=== PATIENT | female | born 1990 | race Caucasian/White ===

== ENCOUNTER 2019-04-27 17:45 | Emergency (ER) | payer OTHER ==
[2019-04-27 17:51] VITALS: BMI 36.6
--- NOTE | 2019-04-27 19:01 | PDOC ---
History of Present Illness - General Chief Complaint: Cold Symptoms Stated Complaint: FEVER/VOMITING History Source: Patient Exam Limitations: No Limitations - History of Present Illness Initial Comments: 04/27/19 18:55 Patient is a 29 year old female with h/o reflux bladder with repair c/o "I think I have the flu". States she has been having symptoms of bodyache, fever, coughing nonproductive, runnynose, sorethorat, decreased appetite, fatigue, nausea, vomiting. Took cold and flu meds, Aleve for body pain with mild relief. Last dose of Aleve midday. No exposure to persons with Flu. No flu shot this year. LMP 04/14/19 PMD: DR. Hinton PMHX: as above PSOCHX: (-) cig, etoh, durg ALL: NKDA GENERAL/CONSTITUTIONAL: [(+) fever or chills. (+) weakness. No weight change.] HEAD, EYES, EARS, NOSE AND THROAT: [No change in vision. No ear pain or discharge. No sore throat.] CARDIOVASCULAR: [No chest pain or shortness of breath.] RESPIRATORY: [(+) cough, wheezing, or hemoptysis.] GASTROINTESTINAL: (+) nausea, vomiting, diarrhea or constipation. No rectal bleeding.] GENITOURINARY: [No dysuria, frequency, or change in urination.] MUSCULOSKELETAL: [No joint or muscle swelling or pain. No neck or back pain.] SKIN AND BREASTS: [No rash or easy bruising.] NEUROLOGIC: [No headache, vertigo, loss of consciousness, or loss of sensation.] PSYCHIATRIC: [No depression or anxiety.] ENDOCRINE: [No increased thirst. No abnormal weight change.] HEMATOLOGIC/LYMPHATIC: [No anemia, easy bleeding, or history of blood clots.] ALLERGIC/IMMUNOLOGIC: [No hives or skin allergy. No latex allergy.] GENERAL: [The patient is awake, alert, and fully oriented, in mild acute distress.] HEAD: [Normal with no signs of trauma.] EYES: [Pupils equal, round and reactive to light, extraocular movements intact, sclera anicteric, conjunctiva clear.] ENT: [Ears normal, nares patent, oropharynx clear without exudates, mild erythema. Moist mucous membranes.] NECK: [Normal range of motion, supple without lymphadenopathy, JVD, or masses.] LUNGS: [Breath sounds equal, clear to auscultation bilaterally. No wheezes, and no crackles.] HEART: [Regular rate and rhythm, normal S1 and S2 without murmur, rub.] ABDOMEN: [Soft, mild epigastric tenderness, normoactive bowel sounds. No guarding, no rebound. No masses.] EXTREMITIES: [Normal range of motion, no edema. No clubbing or cyanosis. No cords, erythema, or tenderness.] NEUROLOGICAL: [Cranial nerves II through XII grossly intact. Normal speech, normal gait.] PSYCH: [Normal mood, normal affect.] SKIN: [Warm, Dry, normal turgor, no rashes or lesions noted.] Past History - Past Medical History Allergies/Adverse Reactions: Allergies Allergy/AdvReac Type Severity Reaction Status Date / Time No Known Allergies Allergy Verified 04/27/19 17:52 Home Medications: Ambulatory Orders Nitrofurantoin Monohyd/M-Cryst [Macrobid -] 100 mg PO BID #14 capsule 04/27/19 COPD: No Other medical history: DENIES - Immunization History Immunization Up to Date: Yes - Psycho Social/Smoking Cessation Hx Smoking History: Never smoked Have you smoked in the past 12 months: No Information on smoking cessation initiated: No Hx Alcohol Use: No Drug/Substance Use Hx: No *Physical Exam - Vital Signs Last Vital Signs Temp Pulse Resp BP Pulse Ox 99.0 F 139 H 18 117/81 99 04/27/19 17:47 04/27/19 17:47 04/27/19 17:47 04/27/19 17:47 04/27/19 17:47 ED Treatment Course - LABORATORY CBC & Chemistry Diagram: 04/27/19 19:31 04/27/19 19:31 Medical Decision Making - Medical Decision Making 04/27/19 18:55 Patient is a 29 year old female with h/o reflux bladder with repair c/o "I think I have the flu". States she has been having symptoms of bodyache, fever, coughing nonproductive, runnynose, sorethorat, decreased appetite, fatigue. Took cold and flu meds, Aleve for body pain with mild relief. No exposure to persons with Flu. No flu shot this year. LMP 04/14/19 Symptoms consistent with flu like illness Will get labs IV hydration, 04/27/19 21:51 Patient feels improved but is complaining of a headache will give Toradol 30 mg IV. Labs reviewed noted to have influenza A. And also a UTI. Given Macrobid 100 mg p.o. She declines a Tamiflu Patient remains tachycardic we will give more fluids Selected Entries 04/27/19 04/27/19 22:13 23:04 Pulse Rate [ 107 H Right Radial] Respiratory 18 Rate Blood Pressure 118/81 [Right Arm] O2 Sat by Pulse 99 Oximetry (%) . At discharge Pulse 98 I discussed the physical exam findings, ancillary test results and final diagnoses with the patient. I answered all of the patient's questions. The patient was satisfied with the care received and felt comfortable with the discharge plan and treatment plan. The Patient agrees to follow up with the primary care physician within 24-72 hours. Discharge - Discharge Information Problems reviewed: Yes Clinical Impression/Diagnosis: Influenza A UTI (urinary tract infection) Qualifiers: Urinary tract infection type: site unspecified Hematuria presence: without hematuria Qualified Code(s): N39.0 - Urinary tract infection, site not specified Condition: Stable Disposition: HOME - Additional Discharge Information Prescriptions: Nitrofurantoin Monohyd/M-Cryst [Macrobid -] 100 mg PO BID #14 capsule - Follow up/Referral Referrals: Tisha Hinton [Primary Care Provider] - - Patient Discharge Instructions Patient Printed Discharge Instructions: DI for Urinary Tract Infection (UTI), DI for Influenza -- Adult Additional Instructions: Your Discharge Instructions: You must call primary care physician within 24 hours to arrange follow-up. Return to the Emergency Department with any new, persistent or worsening symptoms, for fever, chills, SOB, dizziness or any other concerning changes that may occur. - Post Discharge Activity Work/Back to School Note: Back to Work
[2019-04-27] MEDS ORDERED: SODIUM CHLORIDE 0.9% 500 ML INFUS.BAG IV ONE ×2 (19:06→22:23)
[2019-04-27] MEDS ORDERED: ONDANSETRON 4 MG/2 ML VIAL IVPUSH ONE (19:06)
[2019-04-27] MEDS ORDERED: FAMOTIDINE 20 MG/50 ML IVPB 20 MG/50 ML MG IVPB ONE ×2 (19:06→20:20)
[2019-04-27 19:56] LABS: BASO % 0.6 % (0-2.0); EPI CELLS 5.8 /HPF (0-5/HPF); HEMATOCRIT 40.2 % (32.4-45.2); HEMOGLOBIN 13.3 GM/dL (10.7-15.3); HYALINE CASTS 3 /lpf (0-8); LYMPH % 8.9 % (8-40); MCH 28.6 pg (25.7-33.7); MEAN CELL VOLUME 86.6 fl (80-96); MONO % 11.2 % (3.8-10.2); NEUT % 79.3 % (42.8-82.8); PH,URINE 5.5 (5.0-8.0); PLATELET COUNT 316 K/MM3 (134-434); RBC 4.65 M/mm3 (3.60-5.2); RDW 13.6 % (11.6-15.6); URINE APPEARANCE CLOUDY; URINE BACTERIA 8275.4 /hpf (NEGATIVE); URINE BILIRUBIN NEGATIVE (NEGATIVE); URINE COLOR YELLOW; URINE GLUCOSE (UA) NEGATIVE (NEGATIVE); URINE KETONE TRACE (NEGATIVE); URINE LEUK ESTERASE NEGATIVE (NEGATIVE); URINE NITRITE POSITIVE (NEGATIVE); URINE PROTEIN TRACE (NEGATIVE); URINE RBC 4 /hpf (0-4); URINE UROBILINOGEN 0.2 mg/dL (0.2-1.0); URINE WBC 8 /hpf (0-5); WHITE BLOOD COUNT 7.4 K/mm3 (4.0-10.0)
[2019-04-27] MEDS ORDERED: ONDANSETRON 4 MG/2 ML VIAL ONE (20:20)
[2019-04-27 20:29] LABS: ALBUMIN 4.1 g/dl (3.4-5.0); BILIRUBIN,TOTAL 0.5 mg/dL (0.2-1); BLOOD UREA NITROGEN 8.4 mg/dL (7-18); CALCIUM 9.2 mg/dL (8.5-10.1); CREATININE 0.9 mg/dL (0.55-1.3); POTASSIUM 3.9 mmol/L (3.5-5.1); TOT PROT 8.1 g/dl (6.4-8.2)
[2019-04-27] MEDS ORDERED: NITROFURANTOIN MACROCRYSTAL 50 MG CAPSULE (FP) PO SCH (21:00)
[2019-04-27] MEDS ORDERED: NITROFURANTOIN MACROCRYSTAL 50 MG CAPSULE (FP) ONE (21:20)
[2019-04-27] MEDS ORDERED: KETOROLAC TROMETHAMINE 30 MG/1 ML VIAL IVPUSH ONE (21:27)
[2019-04-27] MEDS ORDERED: KETOROLAC TROMETHAMINE 30 MG/1 ML VIAL ONE (21:35)
[2019-04-27 22:14] VITALS: BP 118/81; TEMP 99.1
[2019-04-27 23:05] VITALS: PULSE 107
== END 2019-04-27 23:06 | disposition home or self-care (01) ==
LOC: JER 17:45
PROC: 3E033GC Introduction of Other Therapeutic Substance into Peripheral Vein, Percutaneous Approach (ICD-10-PCS; principal; 2019-04-27)
PROC: 3E033GC Introduction of Other Therapeutic Substance into Peripheral Vein, Percutaneous Approach (ICD-10-PCS; 2019-04-27)
PROC: 3E0333Z Introduction of Anti-inflammatory into Peripheral Vein, Percutaneous Approach (ICD-10-PCS; 2019-04-27)
DX: J09.X2 Influenza due to identified novel influenza A virus with other respiratory manifestations (principal); N39.0 Urinary tract infection, site not specified
CPT/HCPCS: 36415; 71046-TC-FY; 80053; 81003; 85025; 87804; 99284-25

== ENCOUNTER 2020-12-30 18:16 | Emergency (ER) | payer OTHER ==
[2020-12-30 18:23] VITALS: BP 125/82; PULSE 74; TEMP 98.3; BMI 37.2
== END 2020-12-30 21:58 | disposition left against medical advice (07) ==
LOC: JER 18:16
DX: R10.30 Lower abdominal pain, unspecified (principal)
CPT/HCPCS: 99281-25

== ENCOUNTER 2021-04-18 18:06 | Emergency (ER) | payer OTHER ==
[2021-04-18 18:11] VITALS: BP 103/73; PULSE 102; TEMP 98; BMI 38.9
[2021-04-18] MEDS ORDERED: DIPHTH,PERTUSS(ACELL),TET 0.5 ML DISP.SYRIN IM ONE ×2 (19:57→20:16)
== END 2021-04-18 20:24 | disposition home or self-care (01) ==
LOC: JERFT 18:06 → JER 18:06 → JERFT 20:24
PROC: 0HQFXZZ Repair Right Hand Skin, External Approach (ICD-10-PCS; principal; 2021-04-18)
PROC: 3E0234Z Introduction of Serum, Toxoid and Vaccine into Muscle, Percutaneous Approach (ICD-10-PCS; 2021-04-18)
DX: S61.216A Laceration without foreign body of right little finger without damage to nail, initial encounter (principal); Y99.9 Unspecified external cause status
CPT/HCPCS: 12001-25; 90471; 90715; 99282-25

== ENCOUNTER 2023-01-13 12:54 | Emergency (ER) | payer OTHER ==
[2023-01-13 13:08] VITALS: BP 124/82; PULSE 78; RESP 18; TEMP 98.3; BMI 38.9
[2023-01-13] MEDS ORDERED: KETOROLAC TROMETHAMINE 30 MG/1 ML VIAL IM ONE (15:01)
[2023-01-13] MEDS ORDERED: ACETAMINOPHEN 500 MG TABLET (FP) PO ONE (15:01)
[2023-01-13] MEDS ORDERED: LIDOCAINE 5% TOPICAL PATCH TP ONE (15:02)
[2023-01-13] MEDS ORDERED: ACETAMINOPHEN 500 MG TABLET (FP) ONE (15:20)
[2023-01-13] MEDS ORDERED: LIDOCAINE 4% PATCH TP ONE (15:20)
[2023-01-13] MEDS ORDERED: KETOROLAC TROMETHAMINE 30 MG/1 ML VIAL ONE (15:20)
[2023-01-13] MEDS ORDERED: diazePAM 5 MG TABLET PO ONE (16:09)
[2023-01-13] MEDS ORDERED: diazePAM 5 MG TABLET ONE (16:13)
[2023-01-13] MEDS ORDERED: LIDOCAINE PATCH REMOVAL MC SCH (22:00)
== END 2023-01-13 16:15 | disposition home or self-care (01) ==
LOC: JER 12:54
PROC: 3E0233Z Introduction of Anti-inflammatory into Muscle, Percutaneous Approach (ICD-10-PCS; principal; 2023-01-13)
DX: M25.512 Pain in left shoulder (principal); M54.2 Cervicalgia; M62.838 Other muscle spasm; M54.10 Radiculopathy, site unspecified; M79.622 Pain in left upper arm; Z20.822 Contact with and (suspected) exposure to COVID-19
CPT/HCPCS: 0241U-QW; 99284-25